=== PATIENT | male | born 2000 | race Two or more races ===

== ENCOUNTER 2024-09-19 07:28 | Emergency (ER) | payer OTHER ==
[~2024-09-19] VITALS: Ht 167.6 cm; Wt 71.0 kg
[2024-09-19 08:00] VITALS: PULSE 60; RESP 20; O2SAT 98
[2024-09-19 08:00] LABS: Basophils # (auto) 0.1 10 ^3/uL (0-0.2); Basophils % (auto) 0.8 % (0.0-2.0); Eosinophils # (auto) 0.1 10 ^3/uL (0-0.8); Eosinophils % (auto) 1.6 % (0.0-7.0); Hematocrit 44.4 % (41.0-53.0); Hemoglobin 14.8 g/dL (13.5-17.5); Lymphocytes # (auto) 1.7 10 ^3/uL (0.4-5.4); Lymphocytes % (auto) 19.7 % (10.0-50.0); Mean Corpuscular Hemoglobin 29.5 pg (28.0-32.0); Mean Corpuscular Hgb Conc. 33.4 g/dL (32.0-36.0); Mean Corpuscular Volume 88.2 fL (80.0-100.0); Monocytes # (auto) 0.3 10 ^3/uL (0-1.3); Monocytes % (auto) 3.7 % (0.0-12.0); Neutrophils # (auto) 6.3 10 ^3/uL (1.6-8.6); Neutrophils % (auto) 74.2 % (37.0-80.0); Nucleated Red Blood Cells % 0.1 %; Platelet Count (auto) 267 10^3/uL (140-450); Red Blood Cells 5.03 10^6/uL (4.5-5.90); Red Cell Distribution Width 12.7 % (11.8-14.3); White Blood Cell 8.4 10^3/uL (4.4-10.8)
[2024-09-19] MEDS: KETOROLAC TROMETH 30 MG/ML 1ML VIAL IV ONE (08:06)
[2024-09-19] MEDS: TAMSULOSIN HYDROCHLORIDE 0.4 MG CAP PO ONE (08:06)
[2024-09-19] MEDS: METOCLOPRAMIDE HCL 5MG/ml INJ 2ml VIAL IV ONE (08:06)
[2024-09-19] MEDS: SODIUM CHLORIDE 0.9% 1,000 ML IVB ONE (08:07)
[2024-09-19 08:12] LABS: Anion Gap 12 (5-15); Carbon Dioxide 23 mmol/L (20-31); Chloride 107 mmol/L (98-107); Potassium 3.5 mmol/L (3.5-5.1); Sodium 142 mmol/L (136-145)
[2024-09-19 08:13] LABS: Calcium 9.8 mg/dL (8.7-10.4)
[2024-09-19 08:18] LABS: BUN/Creatinine Ratio 6.9 (10.0-20.0); Blood Urea Nitrogen 7 mg/dL (9-23); Glucose 139 mg/dL (74-106); Magnesium 1.8 mg/dL (1.6-2.6)
[2024-09-19 08:40] LABS: Urine Bacteria None Seen /hpf (None Seen)
[2024-09-19 08:47] LABS: Urine Blood 3+ /uL (Negative); Urine Clarity Turbid (Clear); Urine Color Yellow (Yellow); Urine Mucus FEW (None Seen); Urine Protein, UAD 1+ (Negative); Urine Specific Gravity 1.023 (1.001-1.035); Urine Urobilinogen Normal (Negative); Urine WBC 2 /hpf (0 - 3); Urine pH 5.5 (5.0-9.0)
[2024-09-19 08:57] LABS: Lipase 31 U/L (12-53)
[2024-09-19 12:00] VITALS: BP 97/46; PULSE 56; RESP 18; O2SAT 98
[2024-09-19] MEDS ORDERED: DICL50TA2 PO (13:31)
[2024-09-19] MEDS ORDERED: TAMS-35 PO (13:31)
== END 2024-09-19 13:53 | disposition home or self-care (01) ==
LOC: ER 07:28
DX: N13.2 Hydronephrosis with renal and ureteral calculous obstruction (principal); R10.9 Unspecified abdominal pain
CPT/HCPCS: 36415; 74176; 80048; 81001; 83690; 83735; 85025; 96361; 96374; 96375; 99285; J1885; J2765; J7030